=== PATIENT | female | born 1980 | race Caucasian/White ===

== ENCOUNTER 2016-10-09 19:07 | Emergency (ER) | payer MEDICARE, OTHER | END 2016-10-09 22:26 | disposition home or self-care (01) | LOC: FER 19:07 | DX: S91.212A Laceration without foreign body of left great toe with damage to nail, initial encounter (principal); Z23 Encounter for immunization; Z89.419 Acquired absence of unspecified great toe; W20.8XXA Other cause of strike by thrown, projected or falling object, initial encounter; Y92.009 Unspecified place in unspecified non-institutional (private) residence as the place of occurrence of the external cause | CPT/HCPCS: 73660; 90471; 90715 ==